=== PATIENT | female | born 1990 | race Caucasian/White ===

== ENCOUNTER 2017-04-04 06:59 | Emergency (ER) | payer MEDICAID, OTHER ==
[2017-04-04] MEDS ORDERED: Albuterol/Ipratropium Neb 3 ML AERS HHN ONE ×2 (07:24→07:33)
[2017-04-04 07:36] LABS: % BASOPHILS 0.5 % (0.0-2.0); % EOSINOPHILS 4.4 % (0.0-5.0); % LYMPHOCYTES 37.5 % (20.0-50.0); % MONOCYTES 8.2 % (2.0-10.0); % NEUTROPHILS 49.4 % (40.0-80.0); HEMOGLOBIN 13.8 gm/dL (12-16); MEAN CELL VOLUME 89.9 fl (81-100); MEAN CORPUSCULAR HEMOGLOBIN 30.2 pg (27.0-31.0); MEAN CORPUSCULAR HGB CONC 33.6 pg (28.0-36.0); MEAN PLATELET VOLUME 9.1 fl; NEUTROPHILE ABSOLUTE 2.7 Th/cmm (1.8-8.0); PLATELET COUNT 212 Th/cmm (150-400); RED BLOOD COUNT 4.56 Mil/cmm (3.80-5.10); RED CELL DISTRIBUTION WIDTH 12.3 % (11.5-20.0); WHITE BLOOD COUNT 5.3 Th/cmm (4.8-10.8)
[2017-04-04 07:52] LABS: ANION GAP 9.5 (7.0-16.0); BUN - UREA NITROGEN 11 mg/dL (7-25); BUN/CREATININE RATIO 12.2; CALCIUM SERUM 9.3 mg/dL (8.6-10.3); CARBON DIOXIDE 25.3 mEq/L (21.0-31.0); CHLORIDE 105 mEq/L (98-107); CREATININE - SERUM 0.9 mg/dL (0.6-1.2); GLUCOSE 85 mg/dL (70-105); POTASSIUM SERUM 3.8 mEq/L (3.5-5.1); SODIUM SERUM 136 mEq/L (136-145)
--- NOTE | 2017-04-04 16:26 | ER Physician Documentation ---
DATE OF SERVICE: The patient's labs came back; white count is 5.3, hemoglobin is 13.8, hematocrit is ____, platelet count is 212. Electrolytes are not back. The patient wanted to go home. She is insisting of going home. All the risk, complications, alternatives about prematurely going home. She has been given prescription of Zithromax 500 mg for 5 days along with Robitussin-DM, but she wanted some narcotics, she does not need any narcotics. The lungs have occasional rales and rhonchi and she is not willing to wait a minute, so let us hope she stays, but the indications are all that most likely she will sign against medical advice and go. The nurse taking care of the patient is Jose, all the nurses were very nice to her and I explained to her that she should stay for at least 5 minutes, we will get the results, but she wanted to go, let us hope she stays; if she do not stay, then she will be going against medical advice. FINAL DIAGNOSES: Acute tracheobronchitis for past 1-2 weeks according to her history and history of 3 C-sections in the past. JOB# [id number]
--- NOTE | 2017-04-08 01:38 | ER Physician Documentation ---
DATE OF SERVICE: 04/04/2017 HISTORY AND PHYSICAL EXAM AND ER NOTES AND TREATMENT Full code patient. ALLERGIES: None known. Body surface area 1.79 square meters, BMI is 23.5 kilograms per square meter, and weight is 68.039 kilograms. This is a 27-year-old female patient, who came to the Emergency Room because of cough, shortness of breath, difficulty in breathing and bringing out white to yellowish colored to somewhat greenish colored phlegm for the past 1 to 2 weeks and because she did not have any days off, she did not see any doctors. She took some [id number] medication, Mucinex and cough syrup, but that did not help. HISTORY OF PRESENT ILLNESS: Because the above symptoms did not improve, she came to the hospital with the same complaint. She has no nasal discharge. She does not have any headache or body ache. She has not taken any antibiotics. Her other history is essentially benign and negative. She did not have these symptoms in the past. PAST MEDICAL HISTORY: Essentially benign and negative. PAST SURGICAL HISTORY: Includes 3 C-sections done in the past. FAMILY HISTORY: Benign and negative. REVIEW OF SYSTEMS: Also benign and negative. No history of rheumatic fever, valvular heart disease, pericardial disease, cardiomyopathy, chest pain, shortness of breath. No history of any diabetes mellitus, hypo or hyperthyroidism. Bones and joints; no osteoporosis, no pain. PHYSICAL EXAMINATION: VITAL SIGNS: The patient appears to be sick looking. Triage nurse, Mookie, saw the patient, took the vital signs; temperature is normal, at the present moment 98.5; pulse is 90; respirations 16; blood pressure 130/82; and saturation is 98%. GENERAL: Showed that she is sick looking, coughing white to yellowish phlegm. HEENT: Upper throat is mildly congested. Sinuses look to be okay. CHEST: Reveals trachea to be central, fairly good air entry in both lungs, occasional rales and rhonchi are heard and there seems to be upper airway disease, upper respiratory tract infection, no bronchial wheezing. HEART: Reveals normal heart sounds. Fourth heart sound is absent. Third heart sound is absent. Second heart sound is physiologically split. ABDOMEN: Soft, benign, negative except for surgical scar. Liver and spleen not enlarged. No free fluid in the abdominal cavity. CENTRAL NERVOUS SYSTEM: Within normal limits. CLINICAL IMPRESSION: The patient has presented with upper respiratory tract infection, most likely bacterial in etiology and the patient will be given 1 gram of Rocephin to start with and the patient will be getting some baseline blood workup and lactic acid level and one breathing treatment done and she will be sent home if all the labs, etc. does not show any significant need for her to be admitted or other tests to be done. JOB# [id number]
== END 2017-04-04 08:00 | disposition short-term general hospital (02) ==
LOC: ER 06:59
DX: J20.9 Acute bronchitis, unspecified (principal)
CPT/HCPCS: 36415-UA; 80048-TC; 85025-TC; 87070; 94640